=== PATIENT | female | born 2000 | race Caucasian/White ===

== ENCOUNTER 2023-02-10 14:29 | Inpatient (IN) | payer MEDICAID ==
[2023-02-10] MEDS ORDERED: Methylergonovine 0.2 MG/1 ML Amp IM PRN (15:04)
[2023-02-10] MEDS ORDERED: Tranexamic Acid 1,000 MG in Sodium Chloride 0.9% 100 ML IV PRN (15:04)
[2023-02-10] MEDS ORDERED: Butorphanol 1 MG/ML SDV IVPUSH PRN (15:04)
[2023-02-10] MEDS ORDERED: Misoprostol 25 MCG (1/4 of 100 MCG) Tab VAG PRN ×2 (15:04)
[2023-02-10] MEDS ORDERED: Lidocaine 1% 50 ML MDV INJECT PRN (15:04)
[2023-02-10] MEDS ORDERED: Sodium Chloride 0.9% 2.5 ML Syringe FLUSH PRN (15:04)
[2023-02-10] MEDS ORDERED: Terbutaline 1 MG/ML SDV SUBCUT PRN (15:04)
[2023-02-10] MEDS ORDERED: Misoprostol 200 MCG Tab PO PRN (15:04)
[2023-02-10] MEDS ORDERED: Water For Irrigation,Sterile 1,000 ML Container IRR PRN (15:04)
[2023-02-10] MEDS ORDERED: Sodium Chloride 0.9% 20 ML SDV IV PRN (15:04)
[2023-02-10] MEDS ORDERED: Carboprost Tromethamine 250 MCG/1 mL Vial IM PRN (15:04)
[2023-02-10] MEDS ORDERED: Sodium Chloride 0.9% 10 ML Syringe FLUSH PRN (15:04)
[2023-02-10] MEDS ORDERED: Oxytocin/0.9 % Sodium Chloride 30 UNIT/500 ML BAG IV SCH ×2 (15:15)
[2023-02-10] MEDS ORDERED: Phenylephrine HCl 0.5 MG/5 ML AMP IVPUSH PRN (15:39)
[2023-02-10] MEDS ORDERED: ePHEDrine 50 MG/ML SDV IVPUSH PRN ×2 (15:39)
[2023-02-10] MEDS ORDERED: Ropivacaine HCl/PF 400 MG in Premix Bag 1 BAG EPIDUR SCH (15:45)
[2023-02-10 16:54] LABS: HEMATOCRIT 35.3 % (36.0-46.0); MEAN CORPUSCULAR HEMOGLOBIN 30.2 pg (27.0-32.0); MEAN CORPUSCULAR VOLUME 88.7 fL (80.0-98.0); MEAN PLATELET VOLUME 11.3 fL (7.40-12.00); RED BLOOD CELL COUNT 3.98 M/uL (4.30-5.90); WHITE BLOOD CELL COUNT,WBC 8.38 K/uL (4.0-11.0)
[2023-02-10] MEDS: Lactated Ringers 1,000 ML IV SCH (22:00)
[2023-02-11] MEDS: Lactated Ringers 1,000 ML IV SCH (01:28)
[2023-02-11] MEDS ORDERED: Acetaminophen 500 MG Tab PO PRN ×2 (04:42)
[2023-02-11] MEDS ORDERED: oxyCODONE 5 MG Tab PO PRN (04:42)
[2023-02-11] MEDS ORDERED: Benzocaine/Menthol 20%-0.5% Spray 78 GM Cannister TOP PRN (04:42)
[2023-02-11] MEDS ORDERED: Ibuprofen 400 MG Tab PO PRN (04:42)
[2023-02-11] MEDS ORDERED: Bisacodyl 10 MG Supp RECTAL PRN (04:42)
[2023-02-11] MEDS ORDERED: Witch Hazel Medicated Pads 40/Jar TOP PRN (04:42)
[2023-02-11] MEDS ORDERED: Lanolin 100% Cream 7 GM Tube TOP PRN (04:42)
[2023-02-11] MEDS ORDERED: Docusate Sodium 100 MG Cap PO PRN (04:42)
[2023-02-11 04:53] LABS: PH,UMBILICAL ARTERIAL 7.13 (7.18-7.38); PH,UMBILICAL VENOUS 7.229 (7.25-7.45)
[2023-02-11] MEDS: Ibuprofen 800 MG Tab PO PRN ×2 (16:21→22:35)
[2023-02-12 06:01] LABS: HEMATOCRIT 36.5 % (36.0-46.0); HEMOGLOBIN 12.2 g/dL (12.0-16.0)
== END 2023-02-12 18:15 | disposition home or self-care (01) | DRG 807 ==
LOC: MW.OBCHECK 14:29 → MW.OB 14:30 → MW.OBCHECK 14:30 → MW.OB 14:33 → OBSVTOIN 02-11 04:17 → MW.OB 02-11 06:20
PROVIDERS: ADMIT Obstetrics & Gynecology; ATTEND Obstetrics & Gynecology
PROC: 10E0XZZ Delivery of Products of Conception, External Approach (ICD-10-PCS; principal; 2023-02-11)
PROC: 3E0R3BZ Introduction of Anesthetic Agent into Spinal Canal, Percutaneous Approach (ICD-10-PCS; 2023-02-11)
PROC: 00HU33Z Insertion of Infusion Device into Spinal Canal, Percutaneous Approach (ICD-10-PCS; 2023-02-11)
PROC: 3E033VJ Introduction of Other Hormone into Peripheral Vein, Percutaneous Approach (ICD-10-PCS; 2023-02-11)
PROC: 0HQ9XZZ Repair Perineum Skin, External Approach (ICD-10-PCS; 2023-02-11)
PROC: 0UQMXZZ Repair Vulva, External Approach (ICD-10-PCS; 2023-02-11)
DX: O98.32 Other infections with a predominantly sexual mode of transmission complicating childbirth (principal); Z37.0 Single live birth; O70.0 First degree perineal laceration during delivery; Z3A.39 39 weeks gestation of pregnancy; A60.09 Herpesviral infection of other urogenital tract
CPT/HCPCS: 36415; 59025; 59409; 82803; 85014; 85018; 85027; 86592; 86850; 86900; 86901; A9270-GY; J7120

== ENCOUNTER 2023-06-18 16:26 | Emergency (ER) | payer SELFPAY ==
[2023-06-18] MEDS ORDERED: Sodium Chloride 0.9% 1,000 ML IV ONE (16:31)
[2023-06-18] MEDS ORDERED: Ondansetron 4 MG/2 ML SDV IVPUSH ONE (16:31)
[2023-06-18 17:37] LABS: COLOR,URINE YELLOW; GLUCOSE,URINE NEGATIVE (NEGATIVE); KETONES,URINE >=80 mg/dL (NEGATIVE); LEUKOCYTE ESTERASE,URINE NEGATIVE (NEGATIVE); NITRITE,URINE NEGATIVE (NEGATIVE); OCCULT BLOOD,URINE NEGATIVE (NEGATIVE); PROTEIN,URINE 30 mg/dL (NEGATIVE)
[2023-06-18 17:40] LABS: BILIRUBIN,URINE SMALL (NEGATIVE)
[2023-06-18 17:41] LABS: APPEARANCE,URINE CLOUDY; HEMOGLOBIN 14.3 g/dL (12.0-16.0); RED BLOOD CELL COUNT 4.79 M/uL (4.10-5.30); WHITE BLOOD CELL COUNT,WBC 11.72 K/uL (3.9-11.3)
[2023-06-18 17:42] LABS: BASOPHILS ABSOLUTE AUTO 0.03 K/uL (0.00-0.20); BASOPHILS PERCENT AUTO 0.3 % (0.0-1.0); HEMATOCRIT 40.7 % (37.0-47.0); IMMATURE GRAN ABSOLUTE AUTO 0.02 K/uL (0.00-0.05); IMMATURE GRAN PERCENT AUTO 0.2 % (0.0-0.4); LYMPHOCYTES ABSOLUTE AUTO 1.64 K/uL (1.00-4.80); MEAN CORPUSCULAR HEMOGLOBIN 29.9 pg (28.0-32.0); MEAN CORPUSCULAR HGB CONC 35.1 g/dL (32.0-36.0); MEAN PLATELET VOLUME 8.7 fL (9.4-12.3); MONOCYTES ABSOLUTE AUTO 0.64 K/uL (0.00-0.80); MONOCYTES PERCENT AUTO 5.5 % (0.0-8.0); NEUTROPHILS ABSOLUTE AUTO 9.39 K/uL (1.80-7.70); PLATELET COUNT,PLT 313 K/uL (150-400)
[2023-06-18 17:49] LABS: BACTERIA,URINE FEW (NEGATIVE); RBC,URINE 0-2 (0-2/HPF); SQUAMOUS EPITHELIAL CELLS,UR MODERATE; WBC,URINE 0-2 (0-5/HPF)
[2023-06-18 17:50] LABS: AMORPHOUS SEDIMENT,URINE HEAVY (NEGATIVE); MUCUS,URINE LIGHT (NONE-MOD)
[2023-06-18 18:19] LABS: A/G RATIO 1.2 (0.9-1.6); BILIRUBIN TOTAL 1.1 mg/dL (0.2-1.0); CALCIUM 9.3 mg/dL (8.5-10.1); POTASSIUM,K 3.1 mmol/L (3.5-5.1); PROTEIN TOTAL,TP 9.1 g/dL (6.4-8.2)
[2023-06-18] MEDS ORDERED: Ondansetron 4 MG Tab.DIS PO ONE (18:32)
== END 2023-06-18 18:37 | disposition home or self-care (01) ==
LOC: MW.ED 16:26
DX: O21.9 Vomiting of pregnancy, unspecified (principal); F17.210 Nicotine dependence, cigarettes, uncomplicated
CPT/HCPCS: 36415; 80053; 81001; 82009; 84702; 85025; 96361; 96374; 99284; A9270; J2405; J7030

== ENCOUNTER 2024-02-29 12:38 | Emergency (ER) | payer MEDICAID | END 2024-02-29 14:20 | disposition home or self-care (01) | LOC: MW.ED 12:38 | DX: S09.92XA Unspecified injury of nose, initial encounter (principal); Z75.8 Other problems related to medical facilities and other health care; Z79.899 Other long term (current) drug therapy; F17.210 Nicotine dependence, cigarettes, uncomplicated; W22.8XXA Striking against or struck by other objects, initial encounter; Y93.44 Activity, trampolining | CPT/HCPCS: 99283 ==